=== PATIENT | female | born 1945 | race Caucasian/White ===

== ENCOUNTER → 2016-12-04 | Day surgery (SDC) | payer MEDICARE, OTHER ==
[~2016-12-04] MED LIST: BUPIVACAINE/EPINEPHRINE 0.25% 50 ML VIAL ONE; GLUCTAB PO; LACTATED RINGER'S 1000 ML INJ 0 ML ONE; LISI-357 PO; MEPERIDINE HCL 25 MG/ML VIAL ONE; MIDAZOLAM HCL 2 MG/2 ML VIAL ONE; OMEP20TA39 PO; ONDANSETRON HCL 4 MG/2 ML VIAL IV PUSH ONE; PROPOFOL 200 MG/20 ML AMP IV ONE; SIMV20 PO; ceFAZolin INJ 1,000 MG VIAL ONE; oxyCODONE/ACETAMINOPHEN 5 MG/325 MG TAB ONE
--- NOTE | 2016-12-04 10:55 | TN ---
cc: DAKOTA CRUZ M.D. DATE OF SURGERY 12/04/2016 PREOPERATIVE DIAGNOSIS 1. Right knee lateral meniscus tear. 2. Right knee degenerative arthritis. POSTOPERATIVE DIAGNOSIS 1. Right knee complex lateral meniscus tear. 2. Right knee complex medial meniscus tear. 3. Large loose body intercondylar notch. 4. 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 5. Moderate synovitis patellofemoral joint. PROCEDURE PERFORMED 1. Right knee arthroscopy with partial medial and lateral Meniscectomies. 2. Right knee arthroscopic removal of large loose body taken out in piecemeal fashion. 3. Right knee arthroscopic chondroplasty patellofemoral joint and both femoral condyles. 4. Right knee limited synovectomy patellofemoral joint and intercondylar notch. SURGEON Dakota Cruz MD ANESTHESIA General via laryngeal mask augmented by local infiltration BLOOD LOSS Minimal FLUID REPLACEMENT 700 cc of crystalloid TOURNIQUET TIME 25 minutes at 300 mmHg. COMPLICATIONS There were no intraoperative complications. IMPLANTS No implants were utilized. IMAGING There were no radiographs obtained today. INDICATIONS FOR THE PROCEDURE Mrs. De Jesus is a 71-year-old woman who has had a longstanding history of right knee pain with mechanical symptoms and swelling. She has been treated conservatively for many years, but her right knee has progressively deteriorated in terms of function and pain overall limiting her ability to ambulate. She had had a previous left hip replacement and feels as though her right knee is limiting her ability to recover. She has had history of a previous stroke as well and her right leg as her stronger leg. The previous stroke was back in 1998. She has been on some form of anticoagulation ever since. Currently it is Eliquis and this was discontinued preoperatively on November 29, 2016. The current plan is to take her to the operating room for right knee arthroscopy for debridement. She is aware of the risks, benefits, potential complications and limitations of the procedure and a full written informed consent had been obtained. We also had medical clearance by Dr. Maier her primary care physician. She was also aware that she may have some ongoing pain related to her arthritis and may need further surgery in the future. DESCRIPTION OF PROCEDURE After the patient was appropriately identified in the holding area, she had correctly marked her right knee and I had initialed it as well. She was then given one gram of intravenous Ancef as prophylactic antibiotic. She was then taken into the operating suite where she was placed under general laryngeal mask anesthetic by Dr. Matt and then a very well-padded thigh-high tourniquet was applied on her right leg. At this time, her right leg was prepped with alcohol and Hibiclens and then draped in the normal standard fashion including use of impervious stockinette from the toes all the way up to the midcalf region. At this time, a brief time-out was held confirming the right leg was the appropriate surgical site. The team was in agreement and the case was now begun. The right leg was elevated and exsanguinated with an Shailesh wrap and the tourniquet was raised to 300 mmHg. Standard anteromedial and anterolateral joint line portals were made under direct vision. The scope was introduced. A small yellowish effusion was evacuated. Inflow was initiated and a survey of the joint was as follows. The suprapatellar pouch had slight hypertrophic synovial tissue, but nothing that was impinging within the notch or within the joint space itself. The patella tracked fairly midline. There was some grade 2A and 2B changes primarily on the patellar side and limited chondroplasty was performed in order to remove unstable fragments to prevent them from becoming loose bodies. The fat pad was somewhat hypertrophic and I went ahead and debrided some of this as well. At this time, the medial gutter was explored. There was no evidence of any obvious loose bodies or significant hypertrophic synovial tissue. The medial compartment was now formally entered. There was a complex tear seen of the back half of the medial meniscus in addition to a slight cystic swelling of the anterior horn of the medial meniscus. I went ahead and debrided the complex tear from the posterior horn all the way to the midbody leaving a stable rim and then the area where there was some cystic swelling more anteriorly turned out to be a loose body that was under the anterior horn. That was removed in a piecemeal fashion due to the fact that it was so large. Prior to me beginning to remove it, it was 7 or 8 mm in diameter and I took it out in sections that were 3-4 mm in size. Once this was debrided, the intercondylar notch was now explored and the ACL was seen to be intact and tensioned appropriately with anterior drawer. There was good tension with posterior drawer maneuver as well. The medial compartment was graded primarily as grade 2A and 2B chondromalacia on both the medial femoral condyle and the medial tibial plateau. There were some areas of arthritic surfaces touching one another, but no high-grade end-stage disease was encountered in the medial compartment. At this time, the lateral compartment was now entered. There was a similar appearing degenerative tear seen that was complex in nature of the posterior third of the medial meniscus. There was more extensive deeper tearing seen posteriorly and I went ahead and excised a large portion of the posterior third of the lateral meniscus. There was some calcification also seen at the posterior horn lateral meniscus as well making it somewhat rigid and hard. I went ahead and debrided it so it was a smooth surface as best as possible with an oscillating shaver and the hand instruments were then used to further smooth it. The meniscal rim was stable over the popliteus hiatus and she was graded more as a grade 3B chondromalacia in the lateral compartment. No significant chondroplasty was necessary and there were a few areas of some very mild eburnation that were also present. The cartilage loss was worse on the femoral side than it was on the tibial side. The lateral gutter was further explored. No loose bodies or new debris was identified. The knee was then taken through a range of motion then suctioned decompressed several times. It was reinsufflated once again and I reinspected all compartments again and no further pathology was identified. The knee was then suctioned decompressed. All the instruments were then removed. The portals were closed with 3-0 nylon simple sutures and then were injected with 30 cc of 0.25% Marcaine with epinephrine. Xeroform, 4x4s, ABD and an Shailesh wrap was applied to the leg. The tourniquet was let down. There was good capillary refill appreciated. She was awoken from anesthesia and taken to recovery in stable condition. Appropriate postoperative orders have been written. Dakota Cruz MD Electronically Signed Dakota Cruz MD SIS/DJL /10:16 AM /10:34 AM [facility]
== END | disposition home or self-care (01) ==
LOC: ESDC 07:16
PROVIDERS: ATTEND Orthopaedic Surgery Sports Medicine
DX: S83.271A Complex tear of lateral meniscus, current injury, right knee, initial encounter (principal); S83.231A Complex tear of medial meniscus, current injury, right knee, initial encounter; M22.41 Chondromalacia patellae, right knee; M65.9 Synovitis and tenosynovitis, unspecified
CPT/HCPCS: 01400; 29880; J0690; J2175; J2250; J2405; J3010; J7120